=== PATIENT | female | born 1935 | race Caucasian/White ===

== ENCOUNTER 2017-12-08 08:00 | Inpatient (IN) | payer OTHER ==
[~2017-12-08] VITALS: Ht 160 cm; Wt 71.7 kg
[~2017-12-08 08:00] MED LIST: INTEGRA PLUS C1 EACH PO; OXYC1TAB9 PO; XARELTO10 MG PO
[2017-12-08] MEDS ORDERED: COZAAR50 MG PO (09:27)
[2017-12-08] MEDS ORDERED: SYNTHROID75 MCG PO (09:27)
[2017-12-08] MEDS ORDERED: GABAPENTIN400 MG PO (09:28)
[2017-12-08] MEDS ORDERED: LIPITOR40 MG PO (09:28)
[2017-12-08] MEDS ORDERED: CENTRUM SILVER1 EAC4 PO (09:29)
[2017-12-08] MEDS ORDERED: OSTERA TABLET1 EACH PO (09:29)
[2017-12-15] MEDS ORDERED: OXYC1TAB9 PO (10:10)
[2017-12-15] MEDS ORDERED: XARELTO10 MG PO (10:10)
[2017-12-15] MEDS ORDERED: INTEGRA PLUS C1 EACH PO (10:10)
== END 2017-12-15 17:37 | DRG 470 ==
LOC: O/R 12-13 05:28 → SURH 12-13 05:28
PROVIDERS: Orthopaedic Surgery Sports Medicine
PROC: 0SRC0J9 Replacement of Right Knee Joint with Synthetic Substitute, Cemented, Open Approach (ICD-10-PCS; principal; 2017-12-13 12:45)
DX: M17.11 Unilateral primary osteoarthritis, right knee (principal)